=== PATIENT | male | born 1990 | race American Indian/Alaskan Native ===

== ENCOUNTER 2018-08-18 22:48 | Emergency (ER) | payer SELFPAY ==
[2018-08-18 23:12] VITALS: BP 121/70
[2018-08-18] MEDS ORDERED: ZOFRAN IV ONE (23:39)
[2018-08-18] MEDS ORDERED: NACL 0.9% 1000 ML 1,000 ML IV ONE (23:39)
[2018-08-18] MEDS ORDERED: MORPHINE IV ONE (23:39)
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
[2018-08-18 23:59] LABS: Basophils # (Auto) 0.1 K/mm3 (0.0-0.1); Basophils % (Auto) 0.7 % (0.0-1.8); Hemoglobin 14.9 gm/dl (11.8-15.2); Lymphocytes # (Auto) 1.4 K/mm3 (1.2-5.4); Lymphocytes % (Auto) 13.7 % (13.4-35.0); Mean Corpuscular HGB Conc 34 % (32-34); Mean Corpuscular Hemoglobin 34 pg (28-32); Mean Corpuscular Volume 100 fl (84-94); Monocytes # (Auto) 0.9 K/mm3 (0.0-0.8); Monocytes % (Auto) 9.2 % (0.0-7.3); Platelet Count 262 K/mm3 (140-440); Red Blood Count 4.39 M/mm3 (3.65-5.03); Red Cell Distribution Width 13.6 % (13.2-15.2)
[2018-08-19 00:40] LABS: Alanine Aminotransferase 19 units/L (7-56); Albumin 4.5 g/dL (3.9-5); BUN/Creatinine Ratio 9; Blood Urea Nitrogen 11 mg/dL (9-20); Calcium 9.6 mg/dL (8.4-10.2); Hemolysis Index 7
== END 2018-08-19 00:34 | disposition short-term general hospital (02) ==
LOC: ED 22:48
DX: S05.91XA Unspecified injury of right eye and orbit, initial encounter (principal); S09.90XA Unspecified injury of head, initial encounter; E10.8 Type 1 diabetes mellitus with unspecified complications; R07.89 Other chest pain; R10.9 Unspecified abdominal pain; Y04.0XXA Assault by unarmed brawl or fight, initial encounter; Y93.89 Activity, other specified; Y92.89 Other specified places as the place of occurrence of the external cause; Y99.8 Other external cause status
CPT/HCPCS: 36415; 80053; 82550; 85025; 85610; 85730; 96361; 96374; 96375; 99285; G0480; J2270; J2405; J7030; 80320